=== PATIENT | female | born 2005 | race Two or more races ===

== ENCOUNTER → 2024-04-25 | Outpatient (CLI) | payer OTHER ==
[~2024-04-25] MED LIST: GASTROGRAFIN SOLUTION 30ML As Ordered ONE; ISOVUE-370 76% 100ML VIAL As Ordered ONE
== END ==
LOC: M RAD 15:03
PROVIDERS: ATTEND Emergency Medicine
DX: R10.2 Pelvic and perineal pain (principal); Z97.5 Presence of (intrauterine) contraceptive device
CPT/HCPCS: 74177; Q9963; Q9967

== ENCOUNTER 2024-09-01 07:37 | Emergency (ER) | payer OTHER ==
[~2024-09-01] VITALS: Ht 160 cm; Wt 95.9 kg
[2024-09-01] MEDS: NS (Normal Saline) 0.9% 1,000 ML IV ONE (12:00)
[2024-09-01] MEDS: dexAMETHasone 20MG/5ML VIAL IV ONE (12:01)
[2024-09-01] MEDS: METOCLOPRAMIDE INJ 10MG/2ML VIAL IV ONE (12:01)
[2024-09-01] MEDS: KETOROLAC 30 MG/ML 1ML VIAL IV ONE (12:02)
[2024-09-01 12:11] LABS: BASO # 0.1 10^3/uL (0.0-0.2); BASO % 1.2 % (0.0-1.0); EOS # 0.1 10^3/uL (0.0-0.5); HEMATOCRIT 46.1 % (36.0-47.0); HEMOGLOBIN 14.5 g/dl (12.0-15.5); LYMPH # 2.6 10^3/uL (1.5-5.0); LYMPH % 36.8 % (24.0-44.0); MEAN CORPUSCULAR HEMOGLOBIN 26.1 pg (27.0-33.0); MEAN CORPUSCULAR HGB CONC 31.5 g/dl (32.0-36.5); MEAN CORPUSCULAR VOLUME 82.9 fl (80.0-96.0); MONO # 0.2 10^3/uL (0.0-0.8); MONO % 3.3 % (2.0-8.0); NEUTROPHILS % 57.6 % (36.0-66.0); PLATELET COUNT, AUTOMATED 331 10^3/uL (150-450); RED BLOOD COUNT 5.56 10^6/uL (4.00-5.40); WHITE BLOOD COUNT 6.9 10^3/uL (4.0-10.0)
[2024-09-01 13:23] LABS: BLOOD UREA NITROGEN 8 MG/DL (9-23); CALCIUM LEVEL 8.1 MG/DL (8.5-10.1); CARBON DIOXIDE LEVEL 25 MMOL/L (20-31); CHLORIDE LEVEL 106 MMOL/L (98-107); CREATININE FOR GFR 0.58 MG/DL (0.55-1.30); GLOMERULAR FILTRATION RATE > 60.0 (>60); GLUCOSE, FASTING 67 MG/DL (60-100); POTASSIUM SERUM 5.7 MMOL/L (3.5-5.1); SODIUM LEVEL 138 MMOL/L (136-145)
[2024-09-01 14:17] VITALS: BP 129/67; TEMP 96.7; O2SAT 100
== END 2024-09-01 15:03 | disposition home or self-care (01) ==
LOC: M ED 07:37
DX: R51.9 Headache, unspecified (principal)
CPT/HCPCS: 70450; 80048; 83735; 84702; 85025; 96361; 96374; 96375; 99284; J1100; J1885; J2765